=== PATIENT | male | born 1975 | race Caucasian/White ===

== ENCOUNTER 2021-06-17 13:00 | Inpatient (IN) ==
[2021-06-17 13:43] LABS: Basophils % 0.3 %; Eosinophils % 0.2 %; Hematocrit 44.5 % (37.5-50.1); Immature Granulocytes % 0.5 % (0-4); Lymphocytes # 1.1 K/mcL (0.6-4.6); Lymphocytes % 10.9 %; Mean Corpuscular HGB Conc 33.7 g/dL (31.6-35.5); Mean Corpuscular Hemoglobin 28.1 pg (28.0-33.3); Mean Corpuscular Volume 83.3 fL (83.0-100.0); Mean Platelet Volume 10.7 fL (9.4-12.4); Monocytes # 0.3 K/mcL (0.0-1.3); Monocytes % 3.1 %; Neutrophils # 8.2 K/mcL (1.6-8.9); Platelet Count 323 K/mcL (140-400); Red Blood Count 5.34 M/mcL (4.19-5.50); Red Cell Distribution Width 12.9 % (11.5-14.5); White Blood Count 9.6 K/mcL (4.3-11.1)
[2021-06-17 13:53] LABS: Prothrombin Time 11.3 Seconds (9.4-12.1)
[2021-06-17 13:55] LABS: Activated Partial Thrombo Time 31.7 Seconds (26.0-36.0); Magnesium 1.7 mg/dL (1.6-2.6)
[2021-06-17 14:01] LABS: BUN/Creatinine Ratio 34 (6-26); Blood Urea Nitrogen 20 mg/dL (6-20); Calcium 9.5 mg/dL (8.6-10.3); Carbon Dioxide 22 mEq/L (23-29); Chloride 101 mEq/L (98-107); Glucose 426 mg/dL (70-105); Osmolality,Calculated 297 (280-300); Potassium 4.5 mEq/L (3.5-5.1); Sodium 133 mEq/L (136-145); Troponin I 0.03 ng/mL (< 0.04); eGFR For African Americans > 60 (> 60); eGFR For Non-African Americans > 60 (> 60)
[2021-06-17] MEDS ORDERED: Insulin Human Regular 10 UNIT in 0.9 % Sodium Chloride 10 ML IV ONE (15:38)
[2021-06-17] MEDS ORDERED: Acetaminophen 325 MG TABLET PO PRN (16:10)
[2021-06-17] MEDS ORDERED: Ondansetron 4 MG/2 ML VIAL IVP PRN (16:10)
[2021-06-17] MEDS ORDERED: *HR* HYDROcodone/Acet 5/325 mg TABLET PO PRN (16:10)
[2021-06-17] MEDS ORDERED: Naloxone 0.4 MG/ML INJ IVP PRN (16:10)
[2021-06-17] MEDS ORDERED: Melatonin 3 MG TABLET PO PRN (16:10)
[2021-06-17] MEDS ORDERED: Perflutren Lipid Microsphere 1.3 ML in 0.9 % Sodium Chloride 8.7 ML IVP PRN (16:18)
[2021-06-17] MEDS ORDERED: *HR* Dextrose 50 % in Water (Syg) 50 ML SYRINGE IVP PRN (16:19)
[2021-06-17] MEDS ORDERED: D5% in Water 1,000 ML IVC PRN (16:19)
[2021-06-17] MEDS ORDERED: Dextrose Gel 15 GM/37.5 ML TUBE PO PRN ×2 (16:19)
[2021-06-17 16:58] LABS: Magnesium 1.6 mg/dL (1.6-2.6)
[2021-06-17 16:59] LABS: Troponin I 0.03 ng/mL (< 0.04)
[2021-06-17] MEDS: cefTRIAXone 1,000 MG in 0.9 % Sodium Chloride Mini Bag 100 ML IVPB SCH (18:06)
[2021-06-17] MEDS ORDERED: 0.9 % Sodium Chloride 2,000 ML ONE (18:44)
[2021-06-17] MEDS: Insulin LISPRO 300 UNITS/3 ML VIAL SUBQ SCH ×2 (19:27→20:29)
[2021-06-17] MEDS: Ipratropium/Albuterol Neb 3 ML IH SCH ×2 (19:44→21:17)
[2021-06-17] MEDS: Budesonide/Formoterol 160/4.5 1 PUFF INH IH SCH (19:44)
[2021-06-17] MEDS ORDERED: Insulin DETEMIR 100 UNIT/ML X5UNITS SUBQ SCH (21:00)
[2021-06-17] MEDS: Lactobacillus 1 EACH CAP.SPRINK PO SCH (21:43)
[2021-06-17] MEDS: carvediloL 6.25 MG TABLET PO SCH (21:43)
[2021-06-18] MEDS: Ipratropium/Albuterol Neb 3 ML IH SCH ×4 (04:12→20:44)
[2021-06-18] MEDS: *HR* Enoxaparin 40 MG/0.4 ML SYRINGE SQ SCH (06:04)
[2021-06-18 06:44] LABS: Basophils # 0.1 K/mcL (0.0-0.2); Basophils % 0.6 %; Eosinophils # 0.1 K/mcL (0.0-0.6); Eosinophils % 1.1 %; Hematocrit 44.3 % (37.5-50.1); Hemoglobin 14.5 g/dL (12.9-16.9); Immature Granulocytes % 0.5 % (0-4); Lymphocytes # 3.3 K/mcL (0.6-4.6); Lymphocytes % 42.2 %; Mean Corpuscular HGB Conc 32.7 g/dL (31.6-35.5); Mean Corpuscular Hemoglobin 27.9 pg (28.0-33.3); Mean Corpuscular Volume 85.4 fL (83.0-100.0); Mean Platelet Volume 10.9 fL (9.4-12.4); Monocytes # 0.4 K/mcL (0.0-1.3); Monocytes % 5.6 %; Neutrophils # 3.9 K/mcL (1.6-8.9); Platelet Count 304 K/mcL (140-400); Red Blood Count 5.19 M/mcL (4.19-5.50); White Blood Count 7.9 K/mcL (4.3-11.1)
[2021-06-18 06:54] LABS: Chol/HDL Ratio 4.7 (0-4.9); INR 1.1; Prothrombin Time 11.9 Seconds (9.4-12.1)
[2021-06-18 07:03] LABS: Alanine Aminotransferase 25 Units/L (7-52); Albumin 3.8 g/dL (3.5-5.7); Albumin/Globulin Ratio 1.4 (1.1-2.2); Alkaline Phosphatase 70 Units/L (34-104); Aspartate Amino Transferase 15 Units/L (13-39); BUN/Creatinine Ratio 25 (6-26); Bilirubin,Total 0.8 mg/dL (0.3-1.0); Blood Urea Nitrogen 21 mg/dL (6-20); Carbon Dioxide 26 mEq/L (23-29); Chloride 100 mEq/L (98-107); Globulin 2.8 g/dL (2.4-3.5); Glucose 323 mg/dL (70-105); Osmolality,Calculated 295 (280-300); Phosphorous 3.7 mg/dL (2.7-4.5); Potassium 3.9 mEq/L (3.5-5.1); Sodium 135 mEq/L (136-145); Total Protein 6.6 g/dL (6.4-8.9); eGFR For African Americans > 60 (> 60); eGFR For Non-African Americans > 60 (> 60)
[2021-06-18 07:05] LABS: Thyroid Stimulating Hormone 1.264 mcIU/mL (0.340-5.600)
[2021-06-18] MEDS ORDERED: Regadenoson 0.4 MG/5 ML SYRINGE IVP ONE (07:39)
[2021-06-18] MEDS: Budesonide/Formoterol 160/4.5 1 PUFF INH IH SCH ×2 (07:56→20:44)
[2021-06-18] MEDS: Lactobacillus 1 EACH CAP.SPRINK PO SCH ×2 (08:21→20:34)
[2021-06-18] MEDS: carvediloL 6.25 MG TABLET PO SCH (08:21)
[2021-06-18] MEDS: Aspirin 81 MG TAB.CHEW PO SCH (08:21)
[2021-06-18] MEDS: Metoprolol XL (24 HR) Succ 25 MG TAB.ER.24H PO SCH ×2 (08:21→09:10)
[2021-06-18] MEDS: Insulin LISPRO 300 UNITS/3 ML VIAL SUBQ SCH ×5 (08:22→20:31)
[2021-06-18] MEDS: cefTRIAXone 1,000 MG in 0.9 % Sodium Chloride Mini Bag 100 ML IVPB SCH (08:23)
[2021-06-18] MEDS ORDERED: predniSONE 20 MG TABLET PO SCH (09:00)
[2021-06-18 10:32] LABS: Estimated Average Glucose 355 mg/dl
[2021-06-18] MEDS ORDERED: *HR* LORazepam 0.5 MG TABLET PO PRN (13:05)
[2021-06-18] MEDS ORDERED: Insulin Human Regular 10 UNIT in 0.9 % Sodium Chloride 10 ML IV ONE (13:06)
[2021-06-18] MEDS ORDERED: Insulin Human Regular 15 UNIT in 0.9 % Sodium Chloride 10 ML IV ONE (15:49)
[2021-06-18] MEDS ORDERED: Insulin LISPRO 300 UNITS/3 ML VIAL SQ SCH (17:00)
[2021-06-18] MEDS ORDERED: Furosemide 20 MG/2 ML VIAL IVP ONE (18:21)
[2021-06-18] MEDS ORDERED: Furosemide 20 MG/2 ML VIAL IVP SCH (18:30)
[2021-06-18] MEDS ORDERED: Insulin DETEMIR 100 UNIT/ML X5UNITS SUBQ SCH ×2 (21:00)
[2021-06-19 01:31] LABS: BUN/Creatinine Ratio 26 (6-26); Blood Urea Nitrogen 19 mg/dL (6-20); Calcium 8.7 mg/dL (8.6-10.3); Carbon Dioxide 22 mEq/L (23-29); Chloride 102 mEq/L (98-107); Glucose 307 mg/dL (70-105); Osmolality,Calculated 292 (280-300); Potassium 3.6 mEq/L (3.5-5.1); Sodium 134 mEq/L (136-145); eGFR For African Americans > 60 (> 60); eGFR For Non-African Americans > 60 (> 60)
[2021-06-19] MEDS: Ipratropium/Albuterol Neb 3 ML IH SCH ×4 (05:15→20:10)
[2021-06-19] MEDS: *HR* Enoxaparin 40 MG/0.4 ML SYRINGE SQ SCH (06:38)
[2021-06-19] MEDS: Insulin LISPRO 300 UNITS/3 ML VIAL SUBQ SCH ×7 (08:31→21:25)
[2021-06-19] MEDS: Lactobacillus 1 EACH CAP.SPRINK PO SCH ×2 (08:32→21:26)
[2021-06-19] MEDS: Aspirin 81 MG TAB.CHEW PO SCH (08:32)
[2021-06-19] MEDS: Furosemide 20 MG/2 ML VIAL IVP SCH (08:32)
[2021-06-19] MEDS: Spironolactone 12.5 MG TABLET PO SCH (08:32)
[2021-06-19] MEDS: Metoprolol XL (24 HR) Succ 50 MG TAB.ER.24H PO SCH (08:34)
[2021-06-19] MEDS ORDERED: Metoprolol XL (24 HR) Succ 25 MG TAB.ER.24H PO SCH (09:00)
[2021-06-19] MEDS ORDERED: Insulin DETEMIR 100 UNIT/ML X5UNITS SUBQ SCH (09:00)
[2021-06-19] MEDS ORDERED: lisinopriL 5 MG TABLET PO SCH (09:00)
[2021-06-19] MEDS: Budesonide/Formoterol 160/4.5 1 PUFF INH IH SCH ×2 (10:31→20:10)
[2021-06-19] MEDS ORDERED: Furosemide 20 MG/2 ML VIAL IVP ONE (18:00)
[2021-06-19] MEDS: Insulin DETEMIR 100 UNIT/ML X5UNITS SUBQ SCH (21:26)
[2021-06-20] MEDS: Ipratropium/Albuterol Neb 3 ML IH SCH ×4 (04:21→21:44)
[2021-06-20 05:48] LABS: Hematocrit 43.3 % (37.5-50.1); Hemoglobin 14.1 g/dL (12.9-16.9); Mean Corpuscular HGB Conc 32.6 g/dL (31.6-35.5); Mean Corpuscular Hemoglobin 27.5 pg (28.0-33.3); Mean Corpuscular Volume 84.4 fL (83.0-100.0); Mean Platelet Volume 10.6 fL (9.4-12.4); Platelet Count 290 K/mcL (140-400); Red Blood Count 5.13 M/mcL (4.19-5.50); Red Cell Distribution Width 13.1 % (11.5-14.5); White Blood Count 6.6 K/mcL (4.3-11.1)
[2021-06-20] MEDS: *HR* Enoxaparin 40 MG/0.4 ML SYRINGE SQ SCH (05:51)
[2021-06-20 06:08] LABS: BUN/Creatinine Ratio 32 (6-26); Blood Urea Nitrogen 24 mg/dL (6-20); Calcium 9.2 mg/dL (8.6-10.3); Carbon Dioxide 27 mEq/L (23-29); Chloride 103 mEq/L (98-107); Glucose 153 mg/dL (70-105); Magnesium 1.9 mg/dL (1.6-2.6); Osmolality,Calculated 297 (280-300); Phosphorous 5.3 mg/dL (2.7-4.5); Potassium 3.4 mEq/L (3.5-5.1); Sodium 140 mEq/L (136-145); eGFR For African Americans > 60 (> 60); eGFR For Non-African Americans > 60 (> 60)
[2021-06-20] MEDS: Budesonide/Formoterol 160/4.5 1 PUFF INH IH SCH ×2 (07:42→21:45)
[2021-06-20] MEDS: Insulin DETEMIR 100 UNIT/ML X5UNITS SUBQ SCH ×3 (08:51→20:23)
[2021-06-20] MEDS: Insulin LISPRO 300 UNITS/3 ML VIAL SUBQ SCH ×7 (08:51→20:21)
[2021-06-20] MEDS: Furosemide 20 MG/2 ML VIAL IVP SCH (08:56)
[2021-06-20] MEDS: Aspirin 81 MG TAB.CHEW PO SCH (08:56)
[2021-06-20] MEDS: Metoprolol XL (24 HR) Succ 50 MG TAB.ER.24H PO SCH (08:56)
[2021-06-20] MEDS: Lactobacillus 1 EACH CAP.SPRINK PO SCH ×2 (08:56→20:20)
[2021-06-20] MEDS: Sacubitril/Valsartan 24/26 MG 1 TABLET PO SCH ×2 (08:56→20:20)
[2021-06-20] MEDS: Spironolactone 12.5 MG TABLET PO SCH (08:58)
[2021-06-20] MEDS ORDERED: *HR* Midazolam HCl 2 MG/2 ML VIAL ONE (09:28)
[2021-06-20] MEDS ORDERED: *HR* FentaNYL (PF) 100 MCG/2 ML VIAL ONE (09:28)
[2021-06-20] MEDS ORDERED: Nitroglycerin 1,000 MCG/5 ML VIAL IV ONE (09:29)
[2021-06-20] MEDS ORDERED: 0.9 % Sodium Chloride 1,000 ML ONE (09:29)
[2021-06-20] MEDS ORDERED: *HR* Heparin 10,000 UNIT/10 ML VIAL ONE (09:29)
[2021-06-20] MEDS ORDERED: ISOVUE-370 200 ML INFUS..BTL ONE (09:29)
[2021-06-20] MEDS ORDERED: Heparin 1,000 UNITS/500 mL 500 ML ONE (09:29)
[2021-06-21] MEDS: Ipratropium/Albuterol Neb 3 ML IH SCH ×2 (04:20→10:45)
[2021-06-21] MEDS: *HR* Enoxaparin 40 MG/0.4 ML SYRINGE SQ SCH (05:17)
[2021-06-21 06:11] LABS: Hematocrit 46.3 % (37.5-50.1); Hemoglobin 15.4 g/dL (12.9-16.9); Mean Corpuscular HGB Conc 33.3 g/dL (31.6-35.5); Mean Corpuscular Hemoglobin 28.4 pg (28.0-33.3); Mean Corpuscular Volume 85.3 fL (83.0-100.0); Mean Platelet Volume 10.6 fL (9.4-12.4); Platelet Count 355 K/mcL (140-400); Red Blood Count 5.43 M/mcL (4.19-5.50); Red Cell Distribution Width 13.2 % (11.5-14.5); White Blood Count 9.4 K/mcL (4.3-11.1)
[2021-06-21 06:30] LABS: BUN/Creatinine Ratio 32 (6-26); Blood Urea Nitrogen 23 mg/dL (6-20); Calcium 9.4 mg/dL (8.6-10.3); Carbon Dioxide 28 mEq/L (23-29); Chloride 103 mEq/L (98-107); Glucose 121 mg/dL (70-105); Magnesium 1.9 mg/dL (1.6-2.6); Osmolality,Calculated 293 (280-300); Phosphorous 4.6 mg/dL (2.7-4.5); Potassium 3.6 mEq/L (3.5-5.1); Sodium 139 mEq/L (136-145); eGFR For African Americans > 60 (> 60); eGFR For Non-African Americans > 60 (> 60)
[2021-06-21 07:53] VITALS: BP 99/64; PULSE 107; TEMP 98.2
[2021-06-21] MEDS: Insulin LISPRO 300 UNITS/3 ML VIAL SUBQ SCH ×2 (09:11→09:23)
[2021-06-21] MEDS: Lactobacillus 1 EACH CAP.SPRINK PO SCH (09:23)
[2021-06-21] MEDS: Sacubitril/Valsartan 24/26 MG 1 TABLET PO SCH (09:23)
[2021-06-21] MEDS: Furosemide 20 MG/2 ML VIAL IVP SCH (09:23)
[2021-06-21] MEDS: Spironolactone 12.5 MG TABLET PO SCH (09:23)
[2021-06-21] MEDS: Aspirin 81 MG TAB.CHEW PO SCH (09:23)
[2021-06-21] MEDS: Metoprolol XL (24 HR) Succ 50 MG TAB.ER.24H PO SCH (09:23)
[2021-06-21] MEDS: Insulin DETEMIR 100 UNIT/ML X5UNITS SUBQ SCH (09:30)
[2021-06-21] MEDS: Budesonide/Formoterol 160/4.5 1 PUFF INH IH SCH (10:45)
[2021-06-21 14:58] VITALS: O2SAT 97
== END 2021-06-21 12:00 | disposition home or self-care (01) | DRG 280 ==
LOC: SUATTDRO → EMEROOARM 13:00 → 3BNU 13:00 → SUATTDRO 18:16 → 3BNU 20:05
PROVIDERS: ADMIT Family Medicine; ATTEND Internal Medicine